=== PATIENT | female | born 1990 | race Caucasian/White ===

== ENCOUNTER → 2025-08-17 07:50 | Outpatient (CLI) | payer OTHER, SELFPAY ==
--- NOTE | 2025-08-17 07:53 | DI.US.S_ITS ---
PROCEDURE: US OB <= 14 WEEKS FETUS INDICATIONS: dating and viability; 1st trimester bleeding OUTSIDE/PRIOR DATING DATA: Last menstrual period (LMP): 06/22/2025. LMP-based estimated date of delivery (DENNIS): 03/29/2026. First dating scan (date and location): 08/17/2025. Estimated date of delivery (DENNIS) from first dating scan: 04/01/2026. TECHNIQUE: Real-time scanning was performed of the fetus and maternal pelvic organs, with image documentation. Endovaginal scanning was also performed to better visualize the fetus and maternal ovaries. COMPARISON: None. FINDINGS: Intrauterine gestation is seen with cardiac motion, rate 175 BPM. Solomons-rump length is 1.4 cm. Ultrasound age is 7 weeks and 4 days. Left ovarian corpus luteum cyst is present. Yolk sac is seen. IMPRESSION: Intrauterine gestation with cardiac motion. Ultrasound age is 7 weeks and 4 days. This is consistent with the reported LMP. Dictated by: Rodríguez Barrera M.D. on 08/17/2025 at 9:08 Approved by: Rodríguez Barrera M.D. on 08/17/2025 at 9:09
== END ==
LOC: US 07:52
PROVIDERS: PCP Student in an Organized Health Care Education/Training Program; Referring Provider Student in an Organized Health Care Education/Training Program; Visit Provider Student in an Organized Health Care Education/Training Program
DX: Z34.81 Encounter for supervision of other normal pregnancy, first trimester (principal); Z3A.01 Less than 8 weeks gestation of pregnancy
CPT/HCPCS: 76801; 76817

== ENCOUNTER → 2025-09-05 08:52 | Outpatient (CLI) | payer OTHER, SELFPAY ==
[2025-09-05 09:53] LABS: Appearance Urine UA CLEAR; Bilirubin Urine UA NEGATIVE (NEGATIVE); Color Urine UA YELLOW; Glucose Urine UA NEGATIVE (Negative); Ketones Urine UA NEGATIVE (NEGATIVE); Leukocyte Esterase Urine UA NEGATIVE (NEGATIVE); Nitrite Urine UA NEGATIVE (Negative); Occult Blood Urine UA NEGATIVE (Negative); Protein Urine UA NEGATIVE (Negative); Specific Gravity Urine UA <=1.005 (1.000-1.035); Urobilinogen Urine UA 0.2 E.U./dL (0.2); pH Urine UA 5.5 (4.5-8.0)
[2025-09-05 09:54] LABS: Add Manual Diff / Slide Review NO; Hematocrit 42.9 % (36-46); Hemoglobin 14.7 g/dL (12.0-16.0); Lymphocytes Absolute Auto 2000 /uL (1100-4500); Mean Corpuscular HGB Conc 34.2 % (30-36); Mean Corpuscular Hemoglobin 30.7 PG (26-34); Mean Corpuscular Volume 90.0 fL (80-100); Platelet Count 255 X10^3/uL (150-400)
[2025-09-05 10:22] LABS: Natera Collection Specimen Collected
[2025-09-06 16:09] LABS: HIV 1 & 2 Ab/Ag 4th Gen Combo NEGATIVE (NEGATIVE); Hep C Virus Ab w/Reflex Quant NEGATIVE s/c (NEGATIVE); Hepatitis B Surface Antigen NEGATIVE s/c (NEGATIVE)
== END ==
PROVIDERS: PCP Student in an Organized Health Care Education/Training Program; Referring Provider Student in an Organized Health Care Education/Training Program; Visit Provider Student in an Organized Health Care Education/Training Program
DX: K30 Functional dyspepsia (principal); Z34.81 Encounter for supervision of other normal pregnancy, first trimester; Z13.79 Encounter for other screening for genetic and chromosomal anomalies; Z3A.09 9 weeks gestation of pregnancy; Z36.0 Encounter for antenatal screening for chromosomal anomalies
CPT/HCPCS: 36415; 80055; 81003; 86787; 86803; 86850; 86900; 86901; 87086; 87389